=== PATIENT | male | born 1965 | race Caucasian/White ===

== ENCOUNTER 2022-03-29 11:21 | Inpatient (IN) | payer OTHER ==
[~2022-03-29] VITALS: Ht 172.7 cm; Wt 94.7 kg
[2022-03-29] MEDS ORDERED: CREO24CA PO (12:25)
[2022-03-29] MEDS ORDERED: SIMV40TA20 PO (12:25)
[2022-03-29] MEDS ORDERED: LOSA100T45 PO (12:25)
[2022-03-29] MEDS ORDERED: HYDR-3490 PO (12:25)
[2022-03-29 13:05] LABS: HEMATOCRIT 50.7 % (42.0-52.0); HEMOGLOBIN 17.8 g/dl (13.5-17.5); MEAN CORPUSCULAR HEMOGLOBIN 29.6 pg (27.0-33.0); MEAN CORPUSCULAR HGB CONC 35.1 g/dl (32.0-36.5); MEAN CORPUSCULAR VOLUME 84.2 fl (80.0-96.0); PLATELET COUNT, AUTOMATED 344 10^3/uL (150-450); RED BLOOD COUNT 6.02 10^6/uL (4.30-6.10); WHITE BLOOD COUNT 9.4 10^3/uL (4.0-10.0)
[2022-03-29 13:26] LABS: ETHYL ALCOHOL (ETHANOL) < 0.003 % (0.000-0.010)
[2022-03-29 13:28] LABS: ACETAMINOPHEN LEVEL < 2.0 UG/ML (10.0-20.0); SALICYLATE LEVEL < 3.0 MG/DL (<30)
[2022-03-29 13:32] LABS: ALKALINE PHOSPHATASE 109 U/L (46-116); ALT/SGPT 29 U/L (7.0-40); AST/SGOT 21 U/L (<34); BILIRUBIN,DIRECT 0.5 MG/DL (<0.4); BILIRUBIN,TOTAL 1.9 MG/DL (0.3-1.2); BLOOD UREA NITROGEN 14 MG/DL (9-23); CALCIUM LEVEL 9.6 MG/DL (8.5-10.1); CARBON DIOXIDE LEVEL 25 MMOL/L (20-31); CHLORIDE LEVEL 103 MMOL/L (98-107); CREATININE FOR GFR 0.97 MG/DL (0.70-1.30); GLOMERULAR FILTRATION RATE > 60.0 (>56); GLUCOSE, FASTING 212 MG/DL (60-100); POTASSIUM SERUM 3.6 MMOL/L (3.5-5.1); SODIUM LEVEL 139 MMOL/L (136-145); THYROID STIMULATING HORMONE 1.234 uIU/ML (0.55-4.78); TOTAL PROTEIN 7.1 G/DL (5.7-8.2)
[2022-03-29 13:35] LABS: AMPHETAMINES LEVEL URINE NEGATIVE (NEGATIVE); BARBITURATES URINE NEGATIVE (NEGATIVE); BENZODIAZEPINES URINE NEGATIVE (NEGATIVE); CANNABINOIDS URINE NEGATIVE (NEGATIVE); COCAINE METABOLITE URINE NEGATIVE (NEGATIVE); METHADONE URINE NEGATIVE (NEGATIVE); OPIATES URINE NEGATIVE (NEGATIVE); PHENCYCLIDINE URINE NEGATIVE (NEGATIVE)
[2022-03-29] MEDS: CREON-24 CAPSULE PO SCH ×2 (13:55→19:30)
[2022-03-29] MEDS ORDERED: NICOTINE 21MG/24HR 1 EA TRANSDERMAL TD PRN (15:00)
[2022-03-29] MEDS ORDERED: hydrOXYzine 50 MG TAB PO PRN (15:00)
[2022-03-29] MEDS ORDERED: MOM 30ML SUSPENSION UDC PO PRN (15:00)
[2022-03-29] MEDS ORDERED: traZODone 50 MG TAB PO PRN (15:00)
[2022-03-29] MEDS ORDERED: MAALOX 30 ML SUSP *UDC PO PRN (15:00)
[2022-03-29] MEDS ORDERED: ACETAMINOPHEN TAB 650MG DOSE (2X325MG) PO PRN (15:00)
[2022-03-29 16:34] LABS: RSV AMPLIFICATION NEGATIVE (NEGATIVE)
[2022-03-29 17:18] VITALS: BP 124/78
[2022-03-29] MEDS ORDERED: GLUCOSE 4GM CHEW TABLET PO PRN (17:50)
[2022-03-29] MEDS ORDERED: GLUCAGON INJ 1MG VIAL SC PRN (17:50)
[2022-03-29] MEDS ORDERED: DEXTROSE 50% 50ML SYRINGE IV PRN (17:50)
[2022-03-29] MEDS: SIMVASTATIN 40 MG TAB PO SCH (20:09)
[2022-03-29] MEDS: INSULIN LISPRO (NovoLOG) PER UNIT SC SCH (20:12)
[2022-03-29] MEDS ORDERED: THERTAB52 PO (20:39)
[2022-03-29] MEDS ORDERED: INSUH10VL SC (20:40)
[2022-03-29] MEDS ORDERED: HOME MED LIST COMPLETE! XX SCH (20:45)
[2022-03-30 06:25] VITALS: BP 137/84
[2022-03-30] MEDS: INSULIN LISPRO (NovoLOG) PER UNIT SC SCH ×4 (06:38→20:19)
[2022-03-30] MEDS: LOSARTAN 50MG TABLET PO SCH (07:53)
[2022-03-30] MEDS: CREON-24 CAPSULE PO SCH ×3 (07:53→17:39)
[2022-03-30] MEDS: ESCITALOPRAM OXALATE 5MG TABLET (LEXAPRO) PO SCH (13:02)
[2022-03-30] MEDS ORDERED: LEVEMIR (INSULIN DETEMIR) 1 UNITS/0.01ML SC SCH (13:10)
[2022-03-30] MEDS ORDERED: LEVEMIR (INSULIN DETEMIR) 1 UNITS/0.01ML SC ONE (14:00)
[2022-03-30 16:17] VITALS: BP 115/64
[2022-03-30] MEDS ORDERED: INSULIN LISPRO (NovoLOG) PER UNIT SC SCH (17:30)
[2022-03-30] MEDS: SIMVASTATIN 40 MG TAB PO SCH (20:19)
[2022-03-31 06:30] VITALS: BP 142/90
[2022-03-31] MEDS: CREON-24 CAPSULE PO SCH ×3 (07:27→17:26)
[2022-03-31] MEDS ORDERED: INSULIN LISPRO (NovoLOG) PER UNIT SC SCH ×2 (07:30→12:00)
[2022-03-31] MEDS: LOSARTAN 50MG TABLET PO SCH (07:32)
[2022-03-31] MEDS: ESCITALOPRAM OXALATE 5MG TABLET (LEXAPRO) PO SCH (07:33)
[2022-03-31] MEDS ORDERED: LEVEMIR (INSULIN DETEMIR) 1 UNITS/0.01ML SC ONE (08:00)
[2022-03-31 08:45] LABS: BLOOD UREA NITROGEN 29 MG/DL (9-23); CALCIUM LEVEL 8.9 MG/DL (8.5-10.1); CARBON DIOXIDE LEVEL 22 MMOL/L (20-31); CHLORIDE LEVEL 97 MMOL/L (98-107); CREATININE FOR GFR 1.12 MG/DL (0.70-1.30); GLOMERULAR FILTRATION RATE > 60.0 (>56); GLUCOSE, FASTING 348 MG/DL (60-100); POTASSIUM SERUM 3.9 MMOL/L (3.5-5.1); SODIUM LEVEL 133 MMOL/L (136-145)
[2022-03-31] MEDS ORDERED: LEVEMIR (INSULIN DETEMIR) 1 UNITS/0.01ML SC SCH ×2 (09:00→21:00)
[2022-03-31] MEDS ORDERED: DEXTROSE 50% 50ML SYRINGE IV PRN (16:00)
[2022-03-31 16:50] VITALS: BP 123/73
[2022-03-31] MEDS: INSULIN LISPRO (NovoLOG) PER UNIT SC SCH ×2 (17:30→20:09)
[2022-03-31] MEDS: SIMVASTATIN 40 MG TAB PO SCH (20:09)
[2022-04-01 06:14] VITALS: BP 148/90
[2022-04-01] MEDS: INSULIN LISPRO (NovoLOG) PER UNIT SC SCH ×4 (07:03→20:17)
[2022-04-01] MEDS ORDERED: INSULIN LISPRO (NovoLOG) PER UNIT SC STA (07:15)
[2022-04-01] MEDS ORDERED: LEVEMIR (INSULIN DETEMIR) 1 UNITS/0.01ML SC ONE (07:20)
[2022-04-01] MEDS: CREON-24 CAPSULE PO SCH ×3 (07:34→17:01)
[2022-04-01] MEDS: ESCITALOPRAM OXALATE 5MG TABLET (LEXAPRO) PO SCH (07:37)
[2022-04-01] MEDS: LOSARTAN 50MG TABLET PO SCH (07:37)
[2022-04-01] MEDS ORDERED: LEVEMIR (INSULIN DETEMIR) 1 UNITS/0.01ML SC SCH (09:00)
[2022-04-01 16:25] VITALS: BP 145/83
[2022-04-01] MEDS: SIMVASTATIN 40 MG TAB PO SCH (20:16)
[2022-04-02 06:33] VITALS: BP 154/72
[2022-04-02] MEDS: INSULIN LISPRO (NovoLOG) PER UNIT SC SCH (06:56)
[2022-04-02] MEDS: CREON-24 CAPSULE PO SCH (08:38)
[2022-04-02 08:47] VITALS: BP 178/90
[2022-04-02] MEDS: ESCITALOPRAM OXALATE 5MG TABLET (LEXAPRO) PO SCH (08:53)
[2022-04-02 08:54] VITALS: BP 178/90
[2022-04-02] MEDS: LOSARTAN 50MG TABLET PO SCH (08:54)
[2022-04-02] MEDS ORDERED: LEVEMIR (INSULIN DETEMIR) 1 UNITS/0.01ML SC SCH (09:00)
[2022-04-02] MEDS ORDERED: LEXA5TAB13 PO (09:30)
== END 2022-04-02 11:47 | disposition home or self-care (01) | DRG 755 ==
LOC: M ED 11:21 → M ED INP 15:46 → ENRESERV 17:00 → M PSY 17:13
PROVIDERS: ADMIT Psychiatry & Neurology Psychiatry; ATTEND Psychiatry & Neurology Psychiatry
DX: F43.10 Post-traumatic stress disorder, unspecified (principal); F41.9 Anxiety disorder, unspecified; U09.9 Post COVID-19 condition, unspecified; K86.89 Other specified diseases of pancreas; G47.33 Obstructive sleep apnea (adult) (pediatric); I10 Essential (primary) hypertension; E11.9 Type 2 diabetes mellitus without complications; Z20.822 Contact with and (suspected) exposure to COVID-19; Z79.899 Other long term (current) drug therapy; Z91.51 Personal history of suicidal behavior; Z79.4 Long term (current) use of insulin; Z91.82 Personal history of military deployment